=== PATIENT | male | born 1965 | race Caucasian/White ===

== ENCOUNTER 2023-10-23 23:44 | Observation (INO) | payer MEDICARE ==
[2023-10-24] MEDS ORDERED: Ondansetron 4 MG/2 ML SDV IVPUSH ONE (00:13)
[2023-10-24] MEDS ORDERED: Pantoprazole 40 MG Vial IVPUSH ONE (00:13)
[2023-10-24] MEDS ORDERED: Aluminum Hydroxide/Magnesium Hydroxide/Simethicone Susp 30 ML Cup PO ONE (00:14)
[2023-10-24 00:23] LABS: BASOPHILS ABSOLUTE AUTO 0.06 K/uL (0.00-0.10); BASOPHILS PERCENT AUTO 0.4 % (0.1-1.3); EOSINOPHILS ABSOLUTE AUTO 0.05 K/uL (0.00-0.40); EOSINOPHILS PERCENT AUTO 0.3 % (0.0-5.4); HEMATOCRIT 47.9 % (38.4-49.7); HEMOGLOBIN 16.4 g/dL (12.9-16.9); IMMATURE GRAN ABSOLUTE AUTO 0.23 K/uL (0.00-0.23); IMMATURE GRAN PERCENT AUTO 1.5 % (0.0-0.7); LYMPHOCYTES PERCENT AUTO 15.9 % (11.4-47.7); MEAN CORPUSCULAR HEMOGLOBIN 30.5 pg (31.6-35.5); MEAN CORPUSCULAR HGB CONC 34.2 g/dL (31.6-35.5); MEAN CORPUSCULAR VOLUME 89.2 fL (81.4-99.0); MONOCYTES ABSOLUTE AUTO 1.19 K/uL (0.20-0.90); MONOCYTES PERCENT AUTO 7.6 % (3.3-12.6); NEUTROPHILS ABSOLUTE AUTO 11.65 K/uL (1.0-7.6); NEUTROPHILS PERCENT AUTO 74.3 % (40.0-78.1); PLATELET COUNT,PLT 277 K/uL (130-375); RED BLOOD CELL COUNT 5.37 M/uL (4.14-5.76); WHITE BLOOD CELL COUNT,WBC 15.7 K/uL (3.2-11.0)
[2023-10-24] MEDS ORDERED: Sodium Chloride 0.9% 1,000 ML IV SCH ×2 (00:30→03:21)
[2023-10-24 00:34] LABS: A/G RATIO 0.9 (1.2-2.2); ALANINE AMINOTRANSFERASE,ALT 108 U/L (12-78); ALBUMIN 4.1 g/dL (3.4-5.0); ALKALINE PHOSPHATASE 93 U/L (46-116); BILIRUBIN TOTAL 0.7 mg/dL (0.2-1.0); BLOOD UREA NITROGEN,BUN 20 mg/dL (7-18); CALCIUM 10.6 mg/dL (8.5-10.1); CARBON DIOXIDE,CO2 25 mmol/L (21-32); CHLORIDE,CL 97 mmol/L (100-108); CREATININE 1.4 mg/dL (0.8-1.3); ESTIMATED GFR 58 mL/min (>60); GLUCOSE RANDOM 302 mg/dL (74-106); POTASSIUM,K 4.6 mmol/L (3.6-5.2); PROTEIN TOTAL,TP 8.6 g/dL (6.4-8.2); SODIUM,NA 137 mmol/L (140-148); TROPONIN I HIGH SENSITIVITY 13.4 pg/mL (<=60.3)
[2023-10-24 00:34] LABS: BASE EXCESS ARTERIAL 0.1 mm/L; BICARBONATE,ARTERIAL 25.1 mmol/L (22.0-26.0); CARBOXYHEMOGLOBIN 2.1 % (0.0-1.6); O2 SATURATION ARTERIAL 89.5 % (95.0-98.0); OXYHEMOGLOBIN 86.7 %; PCO2 ARTERIAL 43.9 mmHg (35.0-42.0); PO2 ARTERIAL 60.3 mmHg (75.0-100.0); TOTAL HEMOGLOBIN 16.5 g/dL (13.5-18.0)
[2023-10-24 00:37] LABS: ANION GAP 19.6 mmol/L (5.0-14.0); ASPARTATE AMNIOTRANSFERASE,AST 37 U/L (15-37)
[2023-10-24] MEDS ORDERED: 50% Dextrose in Water 50 ML Syringe IVPUSH PRN (00:41)
[2023-10-24] MEDS ORDERED: Insulin Regular, Human 100 Units/ML 3 ML Vial IVPUSH ONE (00:41)
[2023-10-24] MEDS ORDERED: Glucagon,Human Recombinant 1 MG Vial IM PRN (00:41)
[2023-10-24 01:10] LABS: INFLUENZA A NAA NEGATIVE (NEGATIVE); INFLUENZA B NAA NEGATIVE (NEGATIVE); RESPIRATORY SYNCYTIAL VIR NAA NEGATIVE (NEGATIVE)
[2023-10-24 01:12] LABS: CORONAVIRUS COVID-19 NAA POSITIVE (NEGATIVE)
[2023-10-24] MEDS ORDERED: Melatonin 3 MG Tab PO PRN (03:21)
[2023-10-24] MEDS ORDERED: Acetaminophen 325 MG Tab PO PRN (03:21)
[2023-10-24 05:55] LABS: HEMOGLOBIN 13.9 g/dL (12.9-16.9); MEAN CORPUSCULAR HEMOGLOBIN 30.3 pg (31.6-35.5); MEAN CORPUSCULAR HGB CONC 33.9 g/dL (31.6-35.5); MEAN CORPUSCULAR VOLUME 89.3 fL (81.4-99.0); RED BLOOD CELL COUNT 4.59 M/uL (4.14-5.76); WHITE BLOOD CELL COUNT,WBC 12.3 K/uL (3.2-11.0)
[2023-10-24] MEDS ORDERED: Ondansetron 4 MG Tab.DIS PO PRN (06:00)
[2023-10-24] MEDS ORDERED: Ondansetron 4 MG/2 ML SDV IV PRN (06:00)
[2023-10-24 06:07] LABS: CALCIUM 9.1 mg/dL (8.5-10.1); CREATININE 1.1 mg/dL (0.8-1.3); EST CRCL DRUG DOSING (CG) 87.49 mL/min
[2023-10-24] MEDS: Insulin Lispro 100 Unit/ML 3 ML KwikPen SUBCUT SCH ×2 (07:44→11:54)
[2023-10-24] MEDS: Pantoprazole 40 MG Tab.CR PO SCH (07:46)
[2023-10-25 04:39] LABS: HEMATOCRIT 42.8 % (38.4-49.7); HEMOGLOBIN 14.3 g/dL (12.9-16.9); MEAN CORPUSCULAR HEMOGLOBIN 30.2 pg (31.6-35.5); MEAN CORPUSCULAR HGB CONC 33.4 g/dL (31.6-35.5); MEAN CORPUSCULAR VOLUME 90.5 fL (81.4-99.0); RED BLOOD CELL COUNT 4.73 M/uL (4.14-5.76); WHITE BLOOD CELL COUNT,WBC 10.7 K/uL (3.2-11.0)
[2023-10-25 04:55] LABS: CALCIUM 8.2 mg/dL (8.5-10.1); CREATININE 1.2 mg/dL (0.8-1.3); EST CRCL DRUG DOSING (CG) 80.2 mL/min; POTASSIUM,K 3.5 mmol/L (3.6-5.2)
[2023-10-25 05:19] LABS: ANION GAP 11.5 mmol/L (5.0-14.0)
[2023-10-25] MEDS: Pantoprazole 40 MG Tab.CR PO SCH (07:13)
[2023-10-25] MEDS: Insulin Lispro 100 Unit/ML 3 ML KwikPen SUBCUT SCH ×3 (10:52→22:10)
[2023-10-25] MEDS ORDERED: Lisinopril 20 MG Tab PO SCH (22:00)
[2023-10-25] MEDS ORDERED: Meloxicam 7.5 MG Tab PO SCH (22:00)
[2023-10-25] MEDS ORDERED: Tamsulosin 0.4 MG Cap.ER PO SCH (22:00)
[2023-10-25] MEDS ORDERED: DULoxetine 30 MG Cap PO SCH (22:00)
[2023-10-25] MEDS ORDERED: Pregabalin 25 MG Cap PO SCH (22:00)
[2023-10-26] MEDS: Insulin Lispro 100 Unit/ML 3 ML KwikPen SUBCUT SCH (08:19)
[2023-10-26] MEDS: Pantoprazole 40 MG Tab.CR PO SCH (08:20)
== END 2023-10-26 10:15 | disposition home or self-care (01) ==
LOC: JP.ED 23:44 → JP.MS 10-24 01:33
PROVIDERS: ADMIT Registered Nurse; ATTEND Internal Medicine
DX: E10.65 Type 1 diabetes mellitus with hyperglycemia (principal); I10 Essential (primary) hypertension; U07.1 COVID-19; Z87.891 Personal history of nicotine dependence; Z79.899 Other long term (current) drug therapy
CPT/HCPCS: 0241U; 36415; 36600; 80048; 80053; 82009; 82803; 82947; 83690; 84484; 85025; 85027; 96361; 96374; 96375; 99222; 99232; 99238; 99285; 99285-25; A9270-GY; C9113; G0378; J1815; J1815-GY; J2405; J7030